=== PATIENT | male | born 1970 | race Caucasian/White ===

== ENCOUNTER → 2022-06-03 | Outpatient (CLI) | payer OTHER | END | disposition home or self-care (01) | DX: R10.32 Left lower quadrant pain (principal) ==

== ENCOUNTER 2024-06-04 06:43 | Day surgery (SDC) | payer OTHER ==
[~2024-06-04] VITALS: Ht 175.3 cm; Wt 103.0 kg
[~2024-06-04 06:43] MED LIST: ALLO300 PO; AMLO5 PO; CALCIUM CITRAT250 MG; FISH OIL 1,0001 EA10 PO; LOSARTAN-HCTZ1 EAC5 PO; Lactated Ringer's 1,000 ML IV SCH; VITAMIN B121000 MCG PO; VITAMIN D31250 MC2
--- NOTE | 2024-06-04 07:12 | NUR ---
06/04/24 [address] OWENS, SEE ANESTHESIA RECORDS.
[2024-06-04] MEDS ORDERED: propofoL 50 ML IV ONE (07:15)
[2024-06-04 08:04] VITALS: BP 140/81
--- NOTE | 2024-06-04 08:10 | NUR ---
History, Chart, Medications and Allergies reviewed before start of procedure. Patient confirms NPO status and agrees with scheduled surgery. Patient States Post-Procedure ride home has been arranged with , Swathi.
[2024-06-04 09:16] VITALS: BP 100/71
[2024-06-04 09:25] VITALS: BP 114/78
--- NOTE | 2024-06-04 09:36 | NUR ---
Discharge instructions reviewed with patient. Patient verbalizes understanding. Copy given to patient to take home. Patient States Post-Procedure ride home has been arranged. Discharged via wheelchair to private car for ride home.
== END 2024-06-04 09:37 | disposition home or self-care (01) ==
LOC: ORSCMMR 06:43 → ORD 08:30 → ORSCMMR 09:37
PROVIDERS: Internal Medicine Gastroenterology
PROC: 0DBL8ZX Excision of Transverse Colon, Via Natural or Artificial Opening Endoscopic, Diagnostic (ICD-10-PCS; principal; 2024-06-04 08:30)
PROC: 0DBK8ZX Excision of Ascending Colon, Via Natural or Artificial Opening Endoscopic, Diagnostic (ICD-10-PCS; principal; 2024-06-04 08:30)
PROC: 0DBN8ZX Excision of Sigmoid Colon, Via Natural or Artificial Opening Endoscopic, Diagnostic (ICD-10-PCS; principal; 2024-06-04 08:30)
DX: K52.9 Noninfective gastroenteritis and colitis, unspecified (principal); I10 Essential (primary) hypertension; M10.9 Gout, unspecified; G47.33 Obstructive sleep apnea (adult) (pediatric); E66.9 Obesity, unspecified; Z68.33 Body mass index [BMI] 33.0-33.9, adult; Z79.899 Other long term (current) drug therapy
CPT/HCPCS: 88305; J2704; J7120

== ENCOUNTER 2025-03-20 12:18 | Observation (INO) | payer OTHER ==
[~2025-03-20] VITALS: Ht 175.3 cm; Wt 105.0 kg
[~2025-03-20 12:18] MED LIST changes: -Lactated Ringer's 1,000 ML IV SCH
[2025-03-20 13:26] LABS: BASOPHILS ABSOLUTE AUTO 0.07 K/mm3 (0.00-0.23); BASOPHILS PERCENT AUTO 1 % (0-2); EOSINOPHILS ABSOLUTE AUTO 0.09 K/mm3 (0.00-0.68); EOSINOPHILS PERCENT AUTO 1 % (0-6); Hematocrit 40.2 % (37.0-53.0); Hemoglobin 13.9 g/dL (13.5-17.5); IMMATURE GRAN ABSOLUTE AUTO 0.05 K/mm3 (0.00-0.10); IMMATURE GRAN PERCENT AUTO 1 % (0-1); LYMPHOCYTES ABSOLUTE AUTO 1.67 K/mm3 (0.84-5.20); LYMPHOCYTES PERCENT AUTO 19 % (21-46); MONOCYTES ABSOLUTE AUTO 0.84 K/mm3 (0.16-1.47); MONOCYTES PERCENT AUTO 9 % (4-13); Mean Corpuscular HGB Conc 34.6 g/dL (31.5-36.5); Mean Corpuscular Volume 85 fL (80-100); NEUTROPHILS ABSOLUTE AUTO 6.25 K/mm3 (1.96-9.15); NEUTROPHILS PERCENT AUTO 70 % (41-73); NRBC ABSOLUTE 0.00 K/mm3 (0.00-0.02); NRBC Auto 0.0 /100 WBC (0.0-0.2); Platelet Count 298 K/mm3 (150-400); RDW Coefficient Variation 13.1 % (11.7-14.2); RDW Standard Deviation 40.8 fL (35.1-46.3)
[2025-03-20 13:41] LABS: Alanine Aminotransfer (ALT/SGP 51.0 U/L (12-78); Albumin, Blood 4.1 g/dL (3.4-5.0); Albumin/Globulin Ratio 1.2 (0.8-1.8); Anion Gap 8.0 mmol/L (3-11); Aspartate Aminotrans (AST/SGOT 29.0 U/L (12-37); Bilirubin, Total 0.9 mg/dL (0.1-1.0); Blood Urea Nitrogen 21.0 mg/dL (8-24); CO2, Blood 27.0 mmol/L (21-32); Calcium, Blood 8.8 mg/dL (8.5-10.1); Chloride, Blood 105.0 mmol/L (98-108); Creatinine, Blood 1.05 mg/dL (0.60-1.20); Globulin, Blood 3.5 g/dL (2.2-4.0); Glucose, Blood 92.0 mg/dL (70-99); Potassium, Blood 4.1 mmol/L (3.5-5.5); Sodium, Blood 136.0 mmol/L (136-145); Total Protein, Blood 7.6 g/dL (6.4-8.2)
[2025-03-20 15:19] LABS: Anti-Xa UFH, PHA Monitoring <0.10 IU/mL; Prothrombin Time Results 11.5 Sec (9.7-11.5)
[2025-03-20] MEDS ORDERED: Dose Adjust by Pharmacy XX STA ×2 (15:35→23:04)
[2025-03-20] MEDS ORDERED: Heparin Sodium,Porcine/0.5 NS 500 ML IV SCH (15:40)
[2025-03-20 16:48] VITALS: BP 162/87
--- NOTE | 2025-03-20 18:03 | NUR ---
SHIFT SUMMARY NEW ER ADMIT THIS SHIFT, VSS, REPORTS CP "LINGERING DISCOMFORT," A&OX4, ABLE TO AMBULATE INDEP TO BR, HEPARIN INFUSING, TELE NS 67, BEDRESTING AT THIS TIME, WILL CONT TO MONITOR UNTIL REPORT GIVEN TO ONCOMING NURSE.
[2025-03-20] MEDS ORDERED: LOSA50 PO (19:19)
[2025-03-20 19:56] VITALS: BP 145/94
[2025-03-20] MEDS ORDERED: Heparin Sodium 5000 Units/ML 1ML MDV IV ONE (23:05)
[2025-03-21 00:13] VITALS: BP 123/74
--- NOTE | 2025-03-21 03:35 | NUR ---
SHIFT SUMMARY: PT IS HERE FOR CHEST PAIN AND IS TOO HAVE A STRESS TEST AT 0900. PT HAS HAD NO CAFFEINE OR NITRO THIS SHIFT. PT WILL BE NPO AFTER BREAKFAST. PT HAS A HEPARIN DRIP RUNNING AT BEDSIDE. PT IS USING HIS AT HOME CPAP WHILE SLEEPING. PT IS AOX4 AND ABLE TO MAKE NEEDS KNOWN. CALL LIGHT IN REACH. TELLY IS PLACED ON PT.
[2025-03-21 05:25] VITALS: BP 125/79
[2025-03-21 05:39] LABS: BASOPHILS ABSOLUTE AUTO 0.05 K/mm3 (0.00-0.23); BASOPHILS PERCENT AUTO 1 % (0-2); EOSINOPHILS ABSOLUTE AUTO 0.11 K/mm3 (0.00-0.68); EOSINOPHILS PERCENT AUTO 2 % (0-6); Hematocrit 36.9 % (37.0-53.0); Hemoglobin 12.5 g/dL (13.5-17.5); IMMATURE GRAN ABSOLUTE AUTO 0.03 K/mm3 (0.00-0.10); IMMATURE GRAN PERCENT AUTO 0 % (0-1); LYMPHOCYTES ABSOLUTE AUTO 1.62 K/mm3 (0.84-5.20); LYMPHOCYTES PERCENT AUTO 24 % (21-46); MONOCYTES ABSOLUTE AUTO 0.71 K/mm3 (0.16-1.47); MONOCYTES PERCENT AUTO 10 % (4-13); Mean Corpuscular HGB Conc 33.9 g/dL (31.5-36.5); Mean Corpuscular Volume 86 fL (80-100); NEUTROPHILS ABSOLUTE AUTO 4.37 K/mm3 (1.96-9.15); NEUTROPHILS PERCENT AUTO 64 % (41-73); NRBC ABSOLUTE 0.00 K/mm3 (0.00-0.02); NRBC Auto 0.0 /100 WBC (0.0-0.2); Platelet Count 228 K/mm3 (150-400); RDW Coefficient Variation 13.2 % (11.7-14.2); RDW Standard Deviation 41.1 fL (35.1-46.3)
[2025-03-21] MEDS ORDERED: Dose Adjust by Pharmacy XX STA ×2 (05:58→11:25)
[2025-03-21 06:16] LABS: Alanine Aminotransfer (ALT/SGP 39.0 U/L (12-78); Albumin, Blood 3.5 g/dL (3.4-5.0); Albumin/Globulin Ratio 1.2 (0.8-1.8); Anion Gap 9.0 mmol/L (3-11); Aspartate Aminotrans (AST/SGOT 19.0 U/L (12-37); Bilirubin, Total 0.8 mg/dL (0.1-1.0); Blood Urea Nitrogen 19.0 mg/dL (8-24); CO2, Blood 27.0 mmol/L (21-32); Calcium, Blood 8.5 mg/dL (8.5-10.1); Chloride, Blood 105.0 mmol/L (98-108); Creatinine, Blood 1.04 mg/dL (0.60-1.20); Globulin, Blood 3.0 g/dL (2.2-4.0); Glucose, Blood 100.0 mg/dL (70-99); Potassium, Blood 3.6 mmol/L (3.5-5.5); Sodium, Blood 137.0 mmol/L (136-145); Total Protein, Blood 6.5 g/dL (6.4-8.2)
[2025-03-21 07:11] VITALS: BP 121/77
[2025-03-21] MEDS ORDERED: Heparin Sodium 5000 Units/ML 1ML MDV IV ONE (11:30)
[2025-03-21 11:35] VITALS: BP 131/78
[2025-03-21 14:38] VITALS: BP 134/70
--- NOTE | 2025-03-21 14:45 | NUR ---
PATIENT HAD MULTIPLE TESTS DONE TODAY, TOLERATED WELL. WAITING FOR RESULTS TO DETERMINE IF PATIENT CAN GO HOME TODAY OR TOMORROW. NO CONCERNS. PATIENT IS ABLE TO EXPRESS NEEDS.
--- NOTE | 2025-03-21 15:41 | NUR ---
PATIENT TO ROOM VIA WHEELCHAIR. PATIENT AND FAMILY ORIENTED TO ROOM. PATIENT IS ABLE TO ANSWER PERSONAL QUESTIONS WITH OUT DELAY BUT CONTINUES TO HALLUCINATE AND SEE A WHITE DOG JUMPING IN THE CORNER. PATIENT FIGITEY. BED IN LOW POSITION AND BED ALARM SET.
[2025-03-21] MEDS ORDERED: ATOR20 (16:46)
[2025-03-21] MEDS ORDERED: ASPI81CH (16:46)
== END 2025-03-21 17:52 | disposition home or self-care (01) ==
LOC: ER 12:18 → MEDS 12:19
PROVIDERS: Student in an Organized Health Care Education/Training Program; ADMIT Family Medicine
DX: R07.89 Other chest pain (principal); I10 Essential (primary) hypertension; K51.90 Ulcerative colitis, unspecified, without complications; E78.5 Hyperlipidemia, unspecified; M10.9 Gout, unspecified; I77.810 Thoracic aortic ectasia; Z66 Do not resuscitate; Z79.899 Other long term (current) drug therapy
CPT/HCPCS: 36415; 71046; 78452; 80053; 84484; 85025; 85379; 85520; 85610; 85730; 93005; 93010; 93017; 93306; 94762; 96365; 96366; 96375; 99285-25; A9270; A9500; G0378; J1644; J2785